=== PATIENT | female | born 1970 | race Caucasian/White ===

== ENCOUNTER 2017-07-03 17:37 | Emergency (ER) | payer SELFPAY ==
[~2017-07-03] VITALS: Ht 162.6 cm; Wt 112.9 kg
[2017-07-03 21:24] LABS: CHLORIDE 99 MEQ/L (99-109); CREATININE 0.6 MG/DL (0.6-1.3); GFR ESTIMATE (CALCULATED) > 59 mL/min/; GLUCOSE 133 mg/dL (70-99); SODIUM 136 MEQ/L (136-147); UREA NITROGEN (BUN) 11 mg/dL (9-23)
[2017-07-03 21:49] VITALS: BP 162/99
== END 2017-07-03 21:51 | disposition home or self-care (01) ==
LOC: EME 17:37
PROVIDERS: Physician Assistant Medical
DX: I10 Essential (primary) hypertension (principal); J45.909 Unspecified asthma, uncomplicated
CPT/HCPCS: 80048; 99281; 99285